=== PATIENT | female | born 1980 | race American Indian/Alaskan Native ===

== ENCOUNTER 2016-10-09 15:32 | Emergency (ER) | payer SELFPAY ==
--- NOTE | 2016-10-09 19:26 | Emergency Department Report ---
ED Eye Problem HPI - General Chief complaint: Eye Problems Stated complaint: EYE SWOLLEN Time Seen by Provider: 10/09/16 19:09 Source: patient Mode of arrival: Ambulatory Limitations: No Limitations - History of Present Illness Initial comments: 36-year-old female with seasonal allergies presents to ED complaining of left eyelid swelling and pain 3 days. Patient states she is doing with seasonal allergies for the past week and has been rubbing on the eyes and to see dictation and is her left upper lid started to irritate her got swollen and became painful. She denies any object in eye she denies contact use she denies a change in redness of the eye, she denies loss of vision, blurry vision, headache. He denies fever, chills, nausea, vomiting. - Related Data Previous Rx's Medication Instructions Recorded Last Taken Type Cetirizine HCl [ZyrTEC] 10 mg PO DAILY #30 capsule 10/09/16 Unknown Rx Erythromycin [Erythromycin Ophth 1 applic OP BID #1 tube 10/09/16 Unknown Rx Oint] Naphazoline HCl/Pheniramine [Eye 1 - 2 drops OP TID #15 ml 10/09/16 Unknown Rx Allergy Relief Drops] Allergies Allergy/AdvReac Type Severity Reaction Status Date / Time No Known Allergies Allergy Unverified 10/09/16 15:55 ED Review of Systems ROS: Stated complaint: EYE SWOLLEN Other details as noted in HPI Constitutional: denies: chills, fever Eyes: eye pain, eye discharge. denies: vision change ENT: denies: ear pain, throat pain, dental pain, hearing loss, epistaxis, congestion Respiratory: denies: cough, shortness of breath, wheezing Cardiovascular: denies: chest pain, palpitations Endocrine: no symptoms reported Gastrointestinal: denies: abdominal pain, nausea, diarrhea Genitourinary: denies: urgency, dysuria, frequency, hematuria, discharge Musculoskeletal: denies: back pain, joint swelling, arthralgia Skin: denies: rash, lesions Neurological: denies: headache, weakness, paresthesias Psychiatric: denies: anxiety, depression Hematological/Lymphatic: denies: easy bleeding, easy bruising ED Past Medical Hx - Past Medical History Previous Medical History?: No - Surgical History Past Surgical History?: No - Social History Smoking Status: Never Smoker Substance Use Type: None - Medications Home Medications: Home Medications Medication Instructions Recorded Confirmed Last Taken Type Cetirizine HCl [ZyrTEC] 10 mg PO DAILY #30 capsule 10/09/16 Unknown Rx Erythromycin [Erythromycin Ophth 1 applic OP BID #1 tube 10/09/16 Unknown Rx Oint] Naphazoline HCl/Pheniramine [Eye 1 - 2 drops OP TID #15 ml 10/09/16 Unknown Rx Allergy Relief Drops] ED Physical Exam - General Limitations: No Limitations General appearance: alert, in no apparent distress - Head Head exam: Present: atraumatic, normocephalic - Eye Eye exam: Present: normal appearance, PERRL, EOMI, other (left upper eyelid tender to palpation). Absent: scleral icterus, nystagmus Pupils: Present: normal accommodation. Absent: irregular, unequal, miosis - Expanded Eye Exam Expanded Eyelids: Normal Inspection: Right, Swelling: Left Pupils: Regular, Round: Bilateral, Reactive: Bilateral Sclera/Conjunctival: Normal Inspection: Bilateral Anterior chamber: Normal Inspection: Bilateral Visual acuity (R) = 20/: 25 Visual acuity (L) = 20/: 40 With correction: No - ENT ENT exam: Present: mucous membranes moist - Neck Neck exam: Present: normal inspection, full ROM. Absent: tenderness, lymphadenopathy - Respiratory Respiratory exam: Present: normal lung sounds bilaterally. Absent: respiratory distress, wheezes - Cardiovascular Cardiovascular Exam: Present: regular rate, normal rhythm. Absent: systolic murmur, diastolic murmur, rubs, gallop - GI/Abdominal GI/Abdominal exam: Present: soft, normal bowel sounds - Extremities Exam Extremities exam: Present: normal inspection - Back Exam Back exam: Present: normal inspection - Neurological Exam Neurological exam: Present: alert, oriented X3 - Psychiatric Psychiatric exam: Present: normal affect, normal mood - Skin Skin exam: Present: warm, dry, intact, normal color. Absent: rash ED Course Vital Signs 10/09/16 15:52 Temperature 98.1 F Pulse Rate 92 H Respiratory 18 Rate Blood Pressure 128/90 O2 Sat by Pulse 100 Oximetry ED Medical Decision Making - Medical Decision Making 36-year-old female presents with upper left lid blepharitis ED course: Discussed with patient daily allergy medication for prevention of allergies. Discussed daily eyedrops as well as erythromycin ointment to help with infection. Discussed to follow up with her primary care physician and as referred. Vital signs are normal patient is in no acute or respiratory distress. Normal eye exam bilaterally. Visual acuity testing normal See exam OU 20/25 Discussed the patient worsened symptoms to return to ED Critical care attestation.: If time is entered above; I have spent that time in minutes in the direct care of this critically ill patient, excluding procedure time. ED Disposition Clinical Impression: Blepharitis of left upper eyelid Qualifiers: Blepharitis type: unspecified type Qualified Code(s): H01.004 - Unspecified blepharitis left upper eyelid Disposition: DISCHARGED TO HOME OR SELFCARE Is pt being admited?: No Does the pt Need Aspirin: No Condition: Stable Instructions: Blepharitis (ED) Prescriptions: Cetirizine HCl [ZyrTEC] 10 mg PO DAILY #30 capsule Erythromycin [Erythromycin Ophth Oint] 1 applic OP BID #1 tube Naphazoline HCl/Pheniramine [Eye Allergy Relief Drops] 1 - 2 drops OP TID #15 ml Referrals: [facility] [Outside] - 3-5 Days [facility] [Outside] - 3-5 Days Forms: Work/School Release Form(ED) Time of Disposition: 19:44
[2016-10-09 19:58] VITALS: BP 133/91
== END 2016-10-09 19:58 | disposition home or self-care (01) ==
LOC: ED 15:32
DX: H01.004 Unspecified blepharitis left upper eyelid (principal)
CPT/HCPCS: 99282

== ENCOUNTER 2021-03-21 06:32 | Day surgery (SDC) | payer OTHER ==
[2021-03-19 13:17] LABS: Mean Corpuscular HGB Conc 28 % (30-34); Platelet Count 305 K/mm3 (140-440); Red Blood Count 4.19 M/mm3 (3.65-5.03); Red Cell Distribution Width 17.1 % (13.2-15.2)
[2021-03-19 13:18] LABS: Hemoglobin 7.6 gm/dl (10.1-14.3); Mean Corpuscular Volume 64 fl (79-97)
--- NOTE | 2021-03-21 07:13 | Anesthesia Day of Surgery ---
Anesthesia Day of Surgery - Day of Surgery Patient Examined: Yes Patient H&P Reviewed: Yes Patient is NPO: Yes
--- NOTE | 2021-03-21 07:14 | Anesthesia Consultation ---
Anesthesia Consult and Med Hx Date of service: 03/21/21 - Airway Anesthetic Teeth Evaluation: Chipped (Missing) ROM Head & Neck: Adequate Mental/Hyoid Distance: Adequate Mallampati Class: Class III Intubation Access Assessment: Probably Good - Pre-Operative Health Status ASA Pre-Surgery Classification: ASA2 Proposed Anesthetic Plan: General - Pulmonary Hx Smoking: No Hx Sleep Apnea: No - Cardiovascular System Hx Hypertension: No Hx Heart Attack/AMI: No - Central Nervous System Hx Seizures: No Hx Back Pain: No Hx Psychiatric Problems: No - Gastrointestinal Hx Gastroesophageal Reflux Disease: Yes (Occasional dietary no RX) - Endocrine Hx End Stage Renal Disease: No - Hematic Hx Anemia: Yes (TAKES IRON PILLS SOMETIMES) Hx Sickle Cell Disease: No - Other Systems Hx Alcohol Use: Yes (OCC. WINE) Hx Substance Use: No Hx Cancer: No - Additional Comments Anesthesia Medical History Comments: H&H: 7.6/27.0
[2021-03-21] MEDS ORDERED: HYDROmorphone 1 MG/1 ML INJ IV PRN ×2 (07:30→08:00)
--- NOTE | 2021-03-21 07:32 | Short Stay Summary ---
Short Stay Documentation Date of service: 03/21/21 Narrative H&P: 40-year-old -1-1-5 with a history of dysfunctional uterine bleeding. The patient underwent a pelvic ultrasound with findings of a 9.6 cm uterus. No discernible masses could be detected. The endometrium was thickened at 1.9 cm. Endometrial biopsy was performed with findings only consistent with chronic endometritis. The patient has failed medical management and has had significant menorrhagia contributing to her iron deficiency anemia. - History Principal diagnosis: Dysfunctional uterine bleeding Past Medical History: No medical history Past Surgical History: Other (Bilateral tubal ligation) Social history: - Allergies and Medications Current Medications: Allergies No Known Allergies Allergy (Unverified 10/09/16 15:55) Home Medications Medication Instructions Recorded Confirmed Last Taken Type Cetirizine HCl [ZyrTEC] 10 mg PO PRN 03/14/21 Unknown History Active Medications Hydromorphone HCl (Hydromorphone 1 Mg/1 Ml Inj) 0.25 mg IV Q10MIN PRN PRN Reason: Pain, Moderate (4-6) Stop: 03/21/21 17:00 Hydromorphone HCl (Hydromorphone 1 Mg/1 Ml Inj) 0.5 mg IV Q10MIN PRN PRN Reason: Pain , Severe (7-10) Stop: 03/21/21 17:00 Lactated Ringer's (Lactated Ringers) 1,000 mls @ 125 mls/hr IV DIRECT RASHMI Midazolam HCl (Midazolam 2 Mg/2 Ml Inj) 2 mg IV PREOP NR Stop: 03/21/21 23:59 Ondansetron HCl (Ondansetron 4 Mg/2 Ml Inj) 4 mg IV ONCE PRN PRN Reason: Nausea And Vomiting Stop: 03/21/21 17:00 - Physical exam General appearance: no acute distress Integumentary: no rash HEENT: Atraumatic Lungs: Clear to auscultation Breasts: deferred Heart: Regular rate Gastrointestinal: normal Female Genitourinary: deferred - Brief post op/procedure progress note Date of procedure: 03/21/21 Pre-op diagnosis: Dysfunctional uterine bleeding Post-op diagnosis: same Procedure: Hysteroscopy Dilatation and curettage Endometrial ablation with NovaSure Anesthesia: MARIANNA Surgeon: TIFFANIE FUENTES Estimated blood loss: minimal Pathology: list (Endometrial curettings) Specimen disposition: to lab Condition: stable - Hospital course Hospital course: The patient was admitted the day of surgery and underwent an endometrial ablation. Please see operative note for details of surgery. Postoperative course was uneventful. - Disposition Condition at discharge: Good Disposition: 01 HOME / SELF CARE / HOMELESS Short Stay Discharge Plan Activity: other (Pelvic rest for 1 week) Diet: regular Additional Instructions: Patient may schedule follow-up with Dr. Fuentes in 2 weeks Prescriptions: Ibuprofen [Motrin] 800 mg PO Q8HR PRN #30 tablet PRN Reason: Pain , Severe (7-10) HYDROcodone/APAP 5-325 [[place] 5/325] 1 each PO Q6HR PRN #15 tablet PRN Reason: Pain
[2021-03-21] MEDS ORDERED: HYDROmorphone 1 MG/1 ML INJ ONE (07:33)
[2021-03-21] MEDS ORDERED: propofoL 200 MG/20 ML VIAL IV ONE (07:34)
[2021-03-21] MEDS ORDERED: LIDOCAINE MPF (2%) 20 MG/1 ML VIAL 5 ML ONE (07:34)
[2021-03-21] MEDS ORDERED: LACTATED RINGERS 1,000 ML IV SCH (08:00)
[2021-03-21] MEDS ORDERED: MIDAZOLAM 2 MG/2 ML INJ IV NR (08:00)
[2021-03-21] MEDS ORDERED: ONDANSETRON 4 MG/2 ML INJ IV PRN (08:00)
[2021-03-21] MEDS ORDERED: dexAMETHasone 20 MG/5 ML VIAL ONE (08:13)
[2021-03-21] MEDS ORDERED: ONDANSETRON 4 MG/2 ML INJ ONE (08:13)
[2021-03-21] MEDS ORDERED: KETOROLAC 30 MG/1 ML INJ ONE (08:44)
--- NOTE | 2021-03-21 08:47 | Operative Report ---
Operative Report Operative Report: Date of procedure: March 21, 2021 Pre-operative diagnosis: Dysfunctional uterine bleeding Post-operative diagnosis: Same as above Procedure name(s): Hysteroscopy; dilatation and curettage; endometrial ablation via NovaSure Surgeon: Odalis Haider M.D. Appeals Representative: None Anesthesia: General tracheal anesthesia Findings thickened endometrium Pathology: Endometrial curettings Indication: 40-year-old -1-1-5 with dysfunctional uterine bleeding. Procedure The patient was taken to the operating room and given general tracheal anesthesia without complication. The patient was prepped and draped in a normal sterile fashion. A bivalve speculum was placed in the patient's vagina single- tooth tenaculums placed on the anterior lip of the cervix. The cervical os was dilated with graduated dilators. A uterine sound was inserted. The hysteroscope was then placed. Insufflation of the uterine cavity was performed with normal saline. Gen. survey of the uterine cavity revealed thickened endometrium. The hysteroscope was then removed. A sharp curettage of the endometrial surface was performed. The NovaSure device was then inserted. The endometrial length was 5.5 cm and the uterine width was 4.5 cm. The device was engaged and it passed the surveillance of the uterine cavity. The NovaSure device was then deployed with a energy of 136 W that lasted for 1 minute 23 seconds. The NovaSure device was then removed. The hysteroscope was again reinserted. There was evidence of charring of the endometrial surface. The remainder of the vaginal instruments were then removed atraumatically. The patient was then successfully extubated taken to the recovery room. All sponge laps and needle counts were correct 2.
[2021-03-21] MEDS ORDERED: SODIUM CHLORIDE 0.9% IRRIG SOLN 2000 ML IR ONE (08:48)
[2021-03-21 10:23] VITALS: BP 120/69
--- NOTE | 2021-03-21 12:39 | Post Anesthesia Evaluation ---
- Post Anesthesia Evaluation Patient Participated: Yes Airway Patent: Yes Stable Respiratory Function: Yes Nausea/Vomiting: No Temp > 96.8F: Yes Pain Manageable: Yes Adequeate Hydration: Yes Anesthesia Complications: No Block Receding Appropriately: Not Applicable Patient on Ventilator: No
== END 2021-03-21 10:43 | disposition home or self-care (01) ==
LOC: OR 06:32
PROVIDERS: ATTEND Obstetrics & Gynecology
DX: N93.8 Other specified abnormal uterine and vaginal bleeding (principal); K21.9 Gastro-esophageal reflux disease without esophagitis; D64.9 Anemia, unspecified; M19.90 Unspecified osteoarthritis, unspecified site; Z79.899 Other long term (current) drug therapy; Z98.890 Other specified postprocedural states; Z20.822 Contact with and (suspected) exposure to COVID-19
CPT/HCPCS: 36415; 58563; 84703; 85027; 88305; A4217; J1100; J1170; J1885; J2405; J2704; J7120; U0003